=== PATIENT | female | born 1955 | race Caucasian/White ===

== ENCOUNTER 2017-12-16 23:24 | Inpatient (IN) | payer MEDICARE, OTHER ==
[2017-12-17] MEDS ORDERED: ACETAMINOPHEN IV (For NPO) 1,000 MG in EMPTY BAG 1 BAG IVPB STA (00:21)
[2017-12-17] MEDS ORDERED: IBUPROFEN 600 MG TAB PO STA (00:21)
--- NOTE | 2017-12-17 00:27 | ED ---
General Adult HPI - General Chief complaint: Syncope Stated complaint: flu symptoms Time Seen by Provider: 12/16/17 23:40 Source: patient, EMS, RN notes reviewed Mode of arrival: EMS - History of Present Illness Initial comments: This is a 62-year-old female comes in complaining that she started feeling weak earlier today and a couple times she collapsed to the floor. states she was never completely unconscious but was extremely weak and was staring off into space. Patient states she did have chills and felt warm and she has been having an increased cough lately. Patient denies shortness of breath. Patient denies chest pain or palpitations. Patient denies any dysuria hematuria urinary frequency. Patient denies abdominal pain patient denies nausea vomiting diarrhea. Patient denies any rashes. Patient denies being lightheaded or dizzy currently though she states earlier she was. Patient denies any significant injury from when she collapsed. - Related Data Home Medications Medication Instructions Recorded Confirmed Levothyroxine Sodium [Synthroid] 100 mcg PO DAILY 12/17/17 12/17/17 Rivaroxaban [Xarelto] 20 mg PO DAILY 12/17/17 12/17/17 Allergies Allergy/AdvReac Type Severity Reaction Status Date / Time codeine AdvReac Mild Nausea & Verified 12/17/17 00:11 Vomiting & Diarrhea Review of Systems ROS Statement: Those systems with pertinent positive or pertinent negative responses have been documented in the HPI. ROS Other: All systems not noted in ROS Statement are negative. Past Medical History Past Medical History: Cancer, Deep Vein Thrombosis (DVT), Pulmonary Embolus (PE) , Syncope, Thyroid Disorder Additional Past Medical History / Comment(s): Breast CA. History of Any Multi-Drug Resistant Organisms: None Reported Additional Past Surgical History / Comment(s): Right Ankle Surgery Past Psychological History: No Psychological Hx Reported Smoking Status: Never smoker Past Alcohol Use History: None Reported Past Drug Use History: None Reported General Exam - General Exam Comments Initial Comments: GENERAL: Patient is well-developed and well-nourished. Patient is nontoxic and well- hydrated and is in mild distress. ENT: Neck is soft and supple. No significant lymphadenopathy is noted. Oropharynx is clear. Moist mucous membranes. Neck has full range of motion without eliciting any pain. EYES: The sclera were anicteric and conjunctiva were pink and moist. Extraocular movements were intact and pupils were equal round and reactive to light. Eyelids were unremarkable. PULMONARY: Patient has crackles in the right base CARDIOVASCULAR: There is a regular rate and rhythm without any murmurs gallops or rubs. ABDOMEN: Soft and nontender with normal bowel sounds. No palpable organomegaly was noted. There is no palpable pulsatile mass. SKIN: Skin is clear with no lesions or rashes and otherwise unremarkable. NEUROLOGIC: Patient is alert and oriented x3. Cranial nerves II through XII are grossly intact. Motor and sensory are also intact. Normal speech, volume and content. Symmetrical smile. MUSCULOSKELETAL: Normal extremities with adequate strength and full range of motion. No lower extremity swelling or edema. No calf tenderness. LYMPHATICS: No significant lymphadenopathy is noted PSYCHIATRIC: Normal psychiatric evaluation. Normal interpersonal interactions appears functionally intact in deals appropriately with others. No signs of depression. No signs of anxiety. Course Vital Signs 12/16/17 12/17/17 23:29 01:56 Temperature 102.3 F H 100.7 F H Pulse Rate 74 85 Respiratory 20 18 Rate Blood Pressure 128/66 98/54 O2 Sat by Pulse 96 95 Oximetry Medical Decision Making - Medical Decision Making Patient's EKG shows normal sinus rhythm at 60 bpm OH interval is 134 QRS is 86 Q -T intervals 38 QTC is 412. Patient's EKG shows no ST segment elevation or depression or T wave abnormalities are noted. Chest x-ray shows bilateral pneumonia. Since the patient just got off the Zithromax recently I started the patient on some Levaquin and Tamiflu. I spoke with Dr. Sheets he agreed to admit the patient admitted the patient wrote admitting orders. - Lab Data Result diagrams: 12/17/17 00:23 12/17/17 00:00 Lab Results 12/17/17 12/17/17 12/17/17 Range/Units 00:00 00:00 00:00 WBC (3.8-10.6) k/uL RBC (3.80-5.40) m/uL Hgb (11.4-16.0) gm/dL Hct (34.0-46.0) % MCV (80.0-100.0) fL MCH (25.0-35.0) pg MCHC (31.0-37.0) g/dL RDW (11.5-15.5) % Plt Count (150-450) k/uL Neutrophils % % Lymphocytes % % Monocytes % % Eosinophils % % Basophils % % Neutrophils # (1.3-7.7) k/uL Lymphocytes # (1.0-4.8) k/uL Monocytes # (0-1.0) k/uL Eosinophils # (0-0.7) k/uL Basophils # (0-0.2) k/uL PT (9.0-12.0) sec INR (<1.2) APTT (22.0-30.0) sec Sodium 137 (137-145) mmol/L Potassium 3.9 (3.5-5.1) mmol/L Chloride 97 L (98-107) mmol/L Carbon Dioxide 27 (22-30) mmol/L Anion Gap 13 mmol/L BUN 18 H (7-17) mg/dL Creatinine 1.20 H (0.52-1.04) mg/dL Est GFR (CKD-EPI)AfAm 57 (>60 ml/min/1.73 sqM) Est GFR (CKD-EPI)NonAf 49 (>60 ml/min/1.73 sqM) Glucose 110 H (74-99) mg/dL Plasma Lactic Acid Gallito 1.2 (0.7-2.0) mmol/L Calcium 8.8 (8.4-10.2) mg/dL Total Bilirubin 1.7 H (0.2-1.3) mg/dL AST 73 H (14-36) U/L ALT 56 H (9-52) U/L Alkaline Phosphatase 95 (38-126) U/L Troponin I (0.000-0.034) ng/mL Total Protein 6.6 (6.3-8.2) g/dL Albumin 3.8 (3.5-5.0) g/dL Influenza Type A RNA Detected H (Not Detectd) Influenza Type B (PCR) Not Detected (Not Detectd) 12/17/17 12/17/17 12/17/17 Range/Units 00:00 00:00 00:23 WBC 2.7 L (3.8-10.6) k/uL RBC 4.81 (3.80-5.40) m/uL Hgb 13.6 (11.4-16.0) gm/dL Hct 39.7 (34.0-46.0) % MCV 82.6 (80.0-100.0) fL MCH 28.3 (25.0-35.0) pg MCHC 34.3 (31.0-37.0) g/dL RDW 12.6 (11.5-15.5) % Plt Count 133 L (150-450) k/uL Neutrophils % 71 % Lymphocytes % 23 % Monocytes % 4 % Eosinophils % 0 % Basophils % 0 % Neutrophils # 1.9 (1.3-7.7) k/uL Lymphocytes # 0.6 L (1.0-4.8) k/uL Monocytes # 0.1 (0-1.0) k/uL Eosinophils # 0.0 (0-0.7) k/uL Basophils # 0.0 (0-0.2) k/uL PT 10.8 (9.0-12.0) sec INR 1.1 (<1.2) APTT 28.8 (22.0-30.0) sec Sodium (137-145) mmol/L Potassium (3.5-5.1) mmol/L Chloride (98-107) mmol/L Carbon Dioxide (22-30) mmol/L Anion Gap mmol/L BUN (7-17) mg/dL Creatinine (0.52-1.04) mg/dL Est GFR (CKD-EPI)AfAm (>60 ml/min/1.73 sqM) Est GFR (CKD-EPI)NonAf (>60 ml/min/1.73 sqM) Glucose (74-99) mg/dL Plasma Lactic Acid Gallito (0.7-2.0) mmol/L Calcium (8.4-10.2) mg/dL Total Bilirubin (0.2-1.3) mg/dL AST (14-36) U/L ALT (9-52) U/L Alkaline Phosphatase (38-126) U/L Troponin I <0.012 (0.000-0.034) ng/mL Total Protein (6.3-8.2) g/dL Albumin (3.5-5.0) g/dL Influenza Type A RNA (Not Detectd) Influenza Type B (PCR) (Not Detectd) Disposition Clinical Impression: Near syncope, Bilateral pneumonia, Influenza Disposition: ADMITTED IP TO THIS [facility] Is patient prescribed a controlled substance at discharge?: No Time of Disposition: 01:25
[2017-12-17 00:34] LABS: Basophils % (A) 0 %; Eosinophils % (A) 0 %; HCT 39.7 % (34.0-46.0); HGB 13.6 gm/dL (11.4-16.0); Lymphocytes # (A) 0.6 k/uL (1.0-4.8); Lymphocytes % (A) 23 %; MCH 28.3 pg (25.0-35.0); MCHC 34.3 g/dL (31.0-37.0); MCV 82.6 fL (80.0-100.0); Mean Platelet Volume 7.1; Monocytes # (A) 0.1 k/uL (0-1.0); Monocytes % (A) 4 %; Neutrophils # (A) 1.9 k/uL (1.3-7.7); Neutrophils % (A) 71 %; Platelet Count 133 k/uL (150-450); RBC 4.81 m/uL (3.80-5.40); RDW 12.6 % (11.5-15.5); WBC 2.7 k/uL (3.8-10.6)
[2017-12-17] MEDS: SODIUM CHLORIDE 0.9% 500 ML IV SCH ×2 (00:38→00:39)
[2017-12-17 00:45] LABS: INR 1.1 (<1.2); Partial Thromboplastin Time 28.8 sec (22.0-30.0); Prothrombin Time 10.8 sec (9.0-12.0)
[2017-12-17] MEDS ORDERED: OSELTAMIVIR 75 MG CAP PO STA (00:55)
--- NOTE | 2017-12-17 00:59 | XR ---
EXAMINATION TYPE: XR chest 2V DATE OF EXAM: 12/17/2017 COMPARISON: NONE HISTORY: Fever TECHNIQUE: Frontal and lateral views of the chest are obtained. FINDINGS: There is some patchy infiltrate in both lower lobes and more on the right side. There is n o gross heart failure. I see no pleural effusion. Mediastinum is normal. There are chest leads. Bony thorax is intact. IMPRESSION: Bilateral lower lobe pneumonia. No gross heart failure.
[2017-12-17] MEDS ORDERED: cefTRIAXone 2,000 MG in SODIUM CHLORIDE 0.9% 100 ML IVPB STA (01:03)
[2017-12-17 01:04] LABS: Albumin 3.8 g/dL (3.5-5.0); Calcium 8.8 mg/dL (8.4-10.2); Potassium 3.9 mmol/L (3.5-5.1); Total Bilirubin 1.7 mg/dL (0.2-1.3); Total Protein 6.6 g/dL (6.3-8.2)
[2017-12-17] MEDS ORDERED: cefTRIAXone IN SWFI 2,000 MG/20 ML SYRINGE IVP ONE (01:15)
[2017-12-17] MEDS ORDERED: LEVOFLOXACIN 750MG-D5W PMX 750 MG in DEXTROSE/WATER 1 150ML.BAG IVPB STA (01:24)
[2017-12-17] MEDS ORDERED: PNEUMONIA PROTOCOL UTILIZED 1 EACH MISC PO PRN (01:25)
[2017-12-17] MEDS ORDERED: IPRATROPIUM-ALBUTEROL 3 ML NEB INHALATION PRN (01:43)
[2017-12-17] MEDS ORDERED: SODIUM CHLORIDE 0.9% 1,000 ML IV ONE (01:45)
[2017-12-17] MEDS: SODIUM CHLORIDE 0.9% 1,000 ML IV SCH ×3 (02:12→22:34)
[2017-12-17 03:25] VITALS: BMI 32.3
[2017-12-17] MEDS: IPRATROPIUM-ALBUTEROL 3 ML NEB INHALATION SCH ×5 (03:52→21:24)
[2017-12-17 05:47] LABS: Appearance,Urine Clear (Clear); Bilirubin,Urine Negative (Negative); Blood,Urine Negative (Negative); Color,Urine Yellow; Glucose,Urine (UA) Negative (Negative); Ketones,Urine Negative (Negative); Leukocyte Esterase,Urine Large (Negative); Mucus,Urine Few /hpf; Nitrite,Urine Negative (Negative); Protein,Urine 1+ (Negative); RBC,Urine 1 /hpf (0-5); Specific Gravity,Urine 1.012 (1.001-1.035); Squamous Epithelial Cell,Urine 1 /hpf (0-4); Urobilinogen,Urine <2.0 mg/dL (<2.0); WBC,Urine 16 /hpf (0-5)
[2017-12-17] MEDS: LEVOTHYROXINE 100 MCG TAB PO SCH (06:00)
[2017-12-17 06:38] LABS: Basophils % (A) 0 %; Eosinophils % (A) 1 %; HCT 36.9 % (34.0-46.0); HGB 12.3 gm/dL (11.4-16.0); Lymphocytes # (A) 0.8 k/uL (1.0-4.8); Lymphocytes % (A) 35 %; MCH 28.3 pg (25.0-35.0); MCHC 33.3 g/dL (31.0-37.0); Mean Platelet Volume 7.3; Monocytes # (A) 0.1 k/uL (0-1.0); Monocytes % (A) 3 %; Neutrophils # (A) 1.3 k/uL (1.3-7.7); Neutrophils % (A) 59 %; RBC 4.34 m/uL (3.80-5.40); RDW 12.7 % (11.5-15.5); WBC 2.2 k/uL (3.8-10.6)
[2017-12-17 06:49] LABS: ALT 53 U/L (9-52); AST 49 U/L (14-36); Albumin 2.8 g/dL (3.5-5.0); Alkaline Phosphatase 71 U/L (38-126); Anion Gap 12 mmol/L; Blood Urea Nitrogen 16 mg/dL (7-17); Calcium 7.8 mg/dL (8.4-10.2); Carbon Dioxide 20 mmol/L (22-30); Chloride 106 mmol/L (98-107); Glucose 102 mg/dL (74-99); Potassium 3.8 mmol/L (3.5-5.1); Sodium 138 mmol/L (137-145); Total Bilirubin 1.4 mg/dL (0.2-1.3); Total Protein 5.4 g/dL (6.3-8.2)
[2017-12-17 07:31] LABS: Platelet Count 97 k/uL (150-450)
[2017-12-17] MEDS: RIVAROXABAN 20 MG TAB PO SCH (08:31)
[2017-12-17] MEDS: OSELTAMIVIR 75 MG CAP PO SCH ×2 (08:31→20:20)
--- NOTE | 2017-12-17 09:41 | P.HPIM ---
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 Apparently the patient has had a nonproductive cough for the last 6 days and initially saw her PCP who started her on azithromycin and steroids, the patient had no improvement of her symptoms and started running fevers and chills about 2 days ago, she reports loss of appetite she denied any nausea vomiting or shortness of breath or chest pain, she also denied any lightheadedness or dizziness. She denies any significant injuries from when she collapsed. The patient denies any recent flu shots and denies any sick contacts or recent travel. In the ER she was noted to be febrile T-max of 102.3, with positive flu A and chest x-ray suggestive of bilateral lower lobe pneumonia. She was given a liter of fluids and started on Tamiflu and Levaquin. The patient was noted to be possibly be in acute kidney injury with a serum creatinine of 1.2 and elevated total bilirubin of 1.7 with mild transaminitis ast/alt 73/56 respectively and recommended for admission Review of Systems All other 14 point review systems negative except per HPI Past Medical History Past Medical History: Cancer, Deep Vein Thrombosis (DVT), Pulmonary Embolus (PE) , Syncope, Thyroid Disorder Additional Past Medical History / Comment(s): Breast CA. History of Any Multi-Drug Resistant Organisms: None Reported Additional Past Surgical History / Comment(s): Right Ankle Surgery Past Psychological History: No Psychological Hx Reported Smoking Status: Never smoker Past Alcohol Use History: None Reported Past Drug Use History: None Reported Medications and Allergies Home Medications Medication Instructions Recorded Confirmed Type Levothyroxine Sodium [Synthroid] 100 mcg PO DAILY 12/17/17 12/17/17 History Rivaroxaban [Xarelto] 20 mg PO DAILY 12/17/17 12/17/17 History Allergies Allergy/AdvReac Type Severity Reaction Status Date / Time codeine AdvReac Mild Nausea & Verified 12/17/17 08:22 Vomiting & Diarrhea Physical Exam Vitals: Vital Signs Temp Pulse Pulse Pulse Resp BP BP 12/17/17 09:18 88 12/17/17 09:06 84 12/17/17 08:00 97.7 F 58 L 76 16 96/56 12/17/17 03:30 67 18 12/17/17 03:12 97.8 F 67 18 12/17/17 01:56 100.7 F H 85 18 98/54 12/16/17 23:29 102.3 F H 74 20 128/66 BP BP Pulse Ox 12/17/17 09:18 12/17/17 09:06 96 12/17/17 08:00 113/67 113/67 96 12/17/17 03:30 12/17/17 03:12 106/50 96 12/17/17 01:56 95 12/16/17 23:29 96 Intake and Output 12/16/17 12/17/17 12/17/17 22:59 06:59 14:59 Intake Total 300 100 Balance 300 100 Intake: Intake, IV Titration 300 Amount Sodium Chloride 0.9% 1, 300 000 ml @ 125 mls/hr IV . Q8H [facility] Rx#:[id number] Oral 100 Other: Voiding Method Bedside Commode Weight 92.8 kg Constitutional: No acute distress, conversant, pleasant Eyes: Anicteric sclerae, moist conjunctiva, no lid-lag, PERRLA, sunken orbit ENMT: NC/AT,Oropharynx clear, no erythema, exudates Neck:Supple, FROM, no masses, or JVD, No carotid bruits; No thyromegaly Lungs: Bibasilar rhonchi, lungs diminished, Normal respiratory effort, no accessory muscle use Cardiovascular: Heart regular in rate and rhythm, No murmurs, gallops, or rubs no peripheral edema Abdominal: Soft Nontender, nom distended, no guarding, no rebound or rigidity, Normoactive bowel sounds No hepatomegaly, No splenomegaly, No palpable mass No abdominal wall hernia noted Skin: Increased skin tenting No induration No subcutaneous nodules, No rash, lesions, No ulcers Extremities:No digital cyanosis No clubbing, Pedal pulses intact and symmetrical Radial pulses intact and symmetrical Normal gait and station, No calf tenderness, brisk capillary refill Psychiatric: Alert and oriented to person, place and time, Appropriate affect Intact judgement Neuro: Muscles Strength 5/5 in all 4 extremities, Sensation to light touch grossly present throughout, Cranial nerves II-XII grossly intact. No focal sensory deficits Results CBC & Chem 7: 12/17/17 06:11 12/17/17 06:11 Labs: Abnormal Lab Results - Last 24 Hours (Table) 12/17/17 12/17/17 12/17/17 Range/Units 00:00 00:00 00:23 WBC 2.7 L (3.8-10.6) k/uL Plt Count 133 L (150-450) k/uL Lymphocytes # 0.6 L (1.0-4.8) k/uL Chloride 97 L (98-107) mmol/L Carbon Dioxide (22-30) mmol/L BUN 18 H (7-17) mg/dL Creatinine 1.20 H (0.52-1.04) mg/dL Glucose 110 H (74-99) mg/dL Calcium (8.4-10.2) mg/dL Total Bilirubin 1.7 H (0.2-1.3) mg/dL AST 73 H (14-36) U/L ALT 56 H (9-52) U/L Total Protein (6.3-8.2) g/dL Albumin (3.5-5.0) g/dL Urine Protein (Negative) Ur Leukocyte Esterase (Negative) Urine WBC (0-5) /hpf Urine Mucus (None) /hpf Influenza Type A RNA Detected H (Not Detectd) 12/17/17 12/17/17 12/17/17 Range/Units 04:15 06:11 06:11 WBC 2.2 L (3.8-10.6) k/uL Plt Count 97 L (150-450) k/uL Lymphocytes # 0.8 L (1.0-4.8) k/uL Chloride (98-107) mmol/L Carbon Dioxide 20 L (22-30) mmol/L BUN (7-17) mg/dL Creatinine (0.52-1.04) mg/dL Glucose 102 H (74-99) mg/dL Calcium 7.8 L (8.4-10.2) mg/dL Total Bilirubin 1.4 H (0.2-1.3) mg/dL AST 49 H (14-36) U/L ALT 53 H (9-52) U/L Total Protein 5.4 L (6.3-8.2) g/dL Albumin 2.8 L (3.5-5.0) g/dL Urine Protein 1+ H (Negative) Ur Leukocyte Esterase Large H (Negative) Urine WBC 16 H (0-5) /hpf Urine Mucus Few H (None) /hpf Influenza Type A RNA (Not Detectd) Thrombosis Risk Factor Assmnt - Choose All That Apply Any of the Below Risk Factors Present?: Yes Each Factor Represents 1 point: Age 41-60 years Other Risk Factors: No Other congenital or acquired thrombophilia - If yes, enter type in comment: No Thrombosis Risk Factor Assessment Total Risk Factor Score: 1 Thrombosis Risk Factor Assessment Level: Low Risk Assessment and Plan Assessment: Chronic medical conditions Thromboembolic disease on anticoagulation Hypothyroidism CODE STATUS Full code (1) Sepsis Current Visit: Yes Status: Acute Code(s): A41.9 - SEPSIS, UNSPECIFIED ORGANISM SNOMED Code(s): 63388314 (2) Bilateral pneumonia Current Visit: Yes Status: Acute Code(s): J18.9 - PNEUMONIA, UNSPECIFIED ORGANISM SNOMED Code(s): 738418080 (3) Acute kidney injury Current Visit: Yes Status: Acute Code(s): N17.9 - ACUTE KIDNEY FAILURE, UNSPECIFIED SNOMED Code(s): 66184863 (4) Influenza Current Visit: Yes Status: Acute Code(s): J11.1 - FLU DUE TO UNIDENTIFIED INFLUENZA VIRUS W OTH RESP MANIFEST SNOMED Code(s): 1175016 (5) Near syncope Current Visit: Yes Status: Acute Code(s): R55 - SYNCOPE AND COLLAPSE SNOMED Code(s): 200503816 Plan: Plan the patient is admitted with sepsis anticipated greater than 2 midnight stay secondary to bilateral pneumonia possibly community-acquired versus viral pneumonia, and she started empirically on IV antibiotics with Levaquin and antivirals Tamiflu. We'll start scheduled and when necessary bronchodilator DuoNeb breathing treatments along with incentive spirometry. I'll place her on respiratory precautions. Patient does have acute kidney injury likely prerenal secondary to dehydration, likely cause of her feeling fatigued and weak. Checked orthostatics was likely positive as a patient had already received at least 2 L bolus, Patient has a mild transaminitis secondary to acute viral illness with the flu. We'll repeat bolus and increase her maintenance fluids. We'll resume the patient's Xarelto and Synthroid. Continue to follow her clinical course
[2017-12-17] MEDS: guaiFENesin 600 MG TABLET.ER PO SCH ×2 (13:04→20:20)
[2017-12-17] MEDS ORDERED: LEVOFLOXACIN 750MG-D5W PMX 750 MG in DEXTROSE/WATER 1 150ML.BAG IVPB SCH (23:00)
[2017-12-18] MEDS ORDERED: IPRATROPIUM-ALBUTEROL 3 ML NEB ONE (04:00)
[2017-12-18] MEDS: IPRATROPIUM-ALBUTEROL 3 ML NEB INHALATION SCH ×4 (05:39→12:11)
[2017-12-18] MEDS: LEVOTHYROXINE 100 MCG TAB PO SCH (06:46)
[2017-12-18] MEDS: RIVAROXABAN 20 MG TAB PO SCH (07:54)
[2017-12-18] MEDS: guaiFENesin 600 MG TABLET.ER PO SCH ×2 (07:54→20:23)
[2017-12-18] MEDS: OSELTAMIVIR 75 MG CAP PO SCH ×2 (07:54→20:23)
--- NOTE | 2017-12-18 10:27 | XR ---
EXAMINATION TYPE: XR chest 2V DATE OF EXAM: 12/18/2017 COMPARISON: 12/17/2017 INDICATION: Pneumonia TECHNIQUE: Frontal and lateral views of the chest are obtained. FINDINGS: The heart size is normal. The pulmonary vasculature is normal. There is a right middle lobe infiltrate. Correlate for pneumonia. Findings are worsening from prior s tudy. Some posterior infiltrate may be present as well.. IMPRESSION: 1. Worsening right middle and lower lobe infiltrates. Correlate for pneumonia.
[2017-12-18] MEDS ORDERED: SODIUM CHLORIDE 0.65% NASAL SPRAY 44 ML BTL NASAL PRN (14:12)
--- NOTE | 2017-12-18 14:31 | P.PN ---
Subjective Progress Note Date: 12/18/17 62-year-old female with a known history of breast cancer in remission, recurrent DVT and PE on rivaraxaban, who was admitted with sepsis secondary to influenza A and bilateral pneumonia. Also found to have acute kidney injury with a creatinine of 1.2, mild transaminitis with an AST of 73, ALP 56. Patient seen and examined resting comfortably sitting on the bedside commode using as a chair, bedside. is concern as the patient had no imaging of her sinuses, reports patient had near syncopal events at home where she hit her face against the ground with resulting nosebleed. There is noted soft tissue swelling around her nose. Objective - Vital Signs Vital signs: Vital Signs Temp 96.6 F L 12/18/17 11:16 Pulse 69 12/18/17 11:18 Resp 20 12/18/17 11:18 BP 123/58 12/18/17 11:16 Pulse Ox 98 12/18/17 11:16 Intake & Output 12/17/17 12/18/17 12/18/17 18:59 06:59 18:59 Intake Total 340 1400 420 Output Total 1 1200 Balance 339 1400 -780 Weight 92 kg Intake: IV 1250 Sodium Chloride 0.9% 1, 1250 000 ml @ 125 mls/hr IV . Q8H [facility] Rx#:[id number] Intake, IV Titration 150 Amount Levofloxacin 750Mg-D5w 150 Pmx 750 mg In Dextrose/ Water 1 150ml.bag @ 100 mls/hr IVPB HS [facility] Rx#: [id number] Oral 340 420 Output: Urine 1 1200 Other: Voiding Method Bedside Commode Bedside Commode Bedside Commode # Voids 1 3 # Bowel Movements 1 - Exam General: A/O x 3, NAD, Lying in bed comfortably HEENT: EOMI, MMM, soft tissue swelling around the bridge of nose with tenderness to palpation Neck: Supple. No JVD, trachea midline CVS: Regular rate and rhythm. + S1/S2, no murmurs/gallops/rubs Respiratory: Bilateral air entry noted. Right-sided crackles, no wheeze Abdomen: Soft, nontender, nondistended. Bowel sounds audible Extremities: No lower extremity edema. No clubbing or cyanosis Skin: No rash or skin change noted Psych: Without hallucinations, abnormal affect, or abnormal behaviors during the examination - Labs CBC & Chem 7: 12/17/17 06:11 12/17/17 06:11 Labs: Microbiology - Last 24 Hours (Table) 12/17/17 04:15 Urine Culture - Final Urine,Voided 12/17/17 00:00 Blood Culture - Preliminary Blood No Growth after 24 hours Assessment and Plan (1) Acute kidney injury Current Visit: Yes Status: Acute Code(s): N17.9 - ACUTE KIDNEY FAILURE, UNSPECIFIED SNOMED Code(s): 75758349 (2) Bilateral pneumonia Current Visit: Yes Status: Acute Code(s): J18.9 - PNEUMONIA, UNSPECIFIED ORGANISM SNOMED Code(s): 674764107 (3) Influenza Current Visit: Yes Status: Acute Code(s): J11.1 - FLU DUE TO UNIDENTIFIED INFLUENZA VIRUS W OTH RESP MANIFEST SNOMED Code(s): 9172465 (4) Near syncope Current Visit: Yes Status: Acute Code(s): R55 - SYNCOPE AND COLLAPSE SNOMED Code(s): 751571588 (5) Sepsis Current Visit: Yes Status: Acute Code(s): A41.9 - SEPSIS, UNSPECIFIED ORGANISM SNOMED Code(s): 06491653 Plan: Noted soft tissue swelling around her nose with tender to palpation. [place] nasal spray when necessary, will get a CT of facial bones to make sure his notable fracture. Patient's is more worried about a bleed since she is on a blood thinner however sign of ongoing bleed. Sepsis is improving. Now afebrile, not tachycardic, though remains mildly leukopenic. Continue levofloxacin for the pneumonia, continue Tamiflu for the influenza. Change breathing treatments to as needed as patient is not actively wheezing, patient states that the breathing treatments make her jittery. Encourage by mouth intake.
--- NOTE | 2017-12-18 16:39 | CT ---
EXAMINATION TYPE: CT facial bones wo con DATE OF EXAM: 12/18/2017 COMPARISON: NONE HISTORY: [id number] female facial swelling following fall, hitting nose TECHNIQUE: Contiguous axial scanning of the facial bones without IV contrast. Coronal reconstructions performed. CT DLP: 699.4 mGycm Automated exposure control for dose reduction was used. FINDINGS: The mandible and TMJs are intact. Pterygoid plates and zygomatic arches are intact. Orbits and globes are intact. No facial bone fracture seen. Mild mucosal thickening along the floor of the right maxillary sinus and throughout the ethmoid air c ells. There is minimal focal angulation along the right nasal bone but without any associated fracture luce ncy identified here. Reference axial image 52. No depressed nasal bone fracture. Mastoid air cells well pneumatized. Otherwise intracranial structures show no gross abnormality. IMPRESSION: 1. SUBTLE FOCAL ANGULATION OF THE RIGHT NASAL BONE SUSPECTED OLD POSTTRAUMATIC SEQUELA RATHER THAN A NONDISPLACED ACUTE FRACTURE. NO DEPRESSED NASAL BONE FRACTURE OR OTHERWISE ANY OTHER ACUTE FACIAL BON E FRACTURE SEEN. 2. MILD CHRONIC ETHMOID AND RIGHT MAXILLARY SINUS DISEASE.
[2017-12-18] MEDS: SODIUM CHLORIDE 0.9% 1,000 ML IV SCH ×3 (16:51→23:07)
[2017-12-18] MEDS ORDERED: LEVOFLOXACIN 750 MG TAB PO SCH (21:00)
[2017-12-19] MEDS: LEVOTHYROXINE 100 MCG TAB PO SCH (06:10)
[2017-12-19] MEDS: SODIUM CHLORIDE 0.9% 1,000 ML IV SCH (07:47)
[2017-12-19] MEDS: RIVAROXABAN 20 MG TAB PO SCH (07:48)
[2017-12-19] MEDS: OSELTAMIVIR 75 MG CAP PO SCH (07:48)
[2017-12-19] MEDS: guaiFENesin 600 MG TABLET.ER PO SCH (07:48)
[2017-12-19 07:54] VITALS: BP 120/68; PULSE 60; RESP 16; TEMP 96.7
--- NOTE | 2017-12-19 11:45 | P.DS ---
Providers Date of admission: 12/17/17 01:26 Expected date of discharge: 12/19/17 Attending physician: Robert Turner MD Primary care physician: Physician Nonstaff - Discharge Diagnosis(es) (1) Bilateral pneumonia levaquin fpr 7 more days Current Visit: Yes Status: Acute (2) Influenza tamiflu for 3 more days Current Visit: Yes Status: Acute (3) Pulmonary embolism on xarelto Current Visit: Yes Status: Acute (4) Acute kidney injury Resolved Current Visit: Yes Status: Acute Hospital Course: 62 year old female that comes in symptoms of cough shortness of breath. She was found to have bilateral pneumonia. Screen also showed she had Tamiflu. Patient was treated with Levaquin and Tamiflu. She is feeling better. Home O2 evaluation was also performed. She will be discharged home on 7 days of Levaquin and 3 more days of Tamiflu. Patient Condition at Discharge: Stable Plan - Discharge Summary Discharge Rx Participant: No New Discharge Prescriptions: New Levofloxacin [Levaquin] 750 mg PO Q24H #7 tab Oseltamivir [Tamiflu] 75 mg PO Q12HR #6 cap Sodium Chloride 0.65% Nasal [Deep Sea (Saline)] 2 spray NASAL QID PRN spray PRN Reason: Congestion Continue Levothyroxine Sodium [Synthroid] 100 mcg PO DAILY Rivaroxaban [Xarelto] 20 mg PO DAILY Discharge Medication List Levothyroxine Sodium [Synthroid] 100 mcg PO DAILY 12/17/17 [History] Rivaroxaban [Xarelto] 20 mg PO DAILY 12/17/17 [History] Levofloxacin [Levaquin] 750 mg PO Q24H #7 tab 12/19/17 [Rx] Oseltamivir [Tamiflu] 75 mg PO Q12HR #6 cap 12/19/17 [Rx] Sodium Chloride 0.65% Nasal [Deep Sea (Saline)] 2 spray NASAL QID PRN spray [Rx] Follow up Appointment(s)/Referral(s): Nonstaff,Physician [Primary Care Provider] - 1-2 days
== END 2017-12-19 13:45 | disposition home or self-care (01) | DRG 871 ==
LOC: EC 23:24 → 6SEL 12-17 01:26
PROVIDERS: ADMIT Family Medicine; ATTEND Family Medicine
DX: A41.89 Other specified sepsis (principal); J10.08 Influenza due to other identified influenza virus with other specified pneumonia; J12.89 Other viral pneumonia; N17.9 Acute kidney failure, unspecified; E86.0 Dehydration; E03.9 Hypothyroidism, unspecified; Z79.01 Long term (current) use of anticoagulants; Z85.3 Personal history of malignant neoplasm of breast; Z86.711 Personal history of pulmonary embolism; Z86.718 Personal history of other venous thrombosis and embolism; Z79.890 Hormone replacement therapy; Z88.5 Allergy status to narcotic agent
CPT/HCPCS: 36415; 70486; 71046; 80053; 81001; 83605; 84484; 85025; 85610; 85730; 87040; 87086; 87502; 93005; 94640; 94760; 96365; 96375; 99285

== ENCOUNTER 2019-06-16 10:02 | Emergency (ER) | payer MEDICARE, OTHER ==
[2019-06-16] MEDS ORDERED: SODIUM CHLORIDE 0.9% 500 ML 500 ML IV STA (10:44)
--- NOTE | 2019-06-16 10:47 | ED ---
Arrhythmia/Palpitations HPI - General Source: patient, RN notes reviewed Mode of arrival: ambulatory Limitations: no limitations <Nirav Burr - Last Filed: 06/16/19 12:14> <Pari Ramirez - Last Filed: 06/20/19 23:37> - General Chief Complaint: Arrhythmia/Palpitations Stated Complaint: racing heart Time Seen by Provider: 06/16/19 10:13 - History of Present Illness Initial Comments: 64-year-old female presents emergency Department chief complaint of heart racing. Patient states that she was doing her daily walking in which she states that she started feeling her heart racing. Patient states that she was not doing anything out of the usual. Patient states that she attempted to down, rest with no improvement of symptoms. At this point she proceeded to the emergency department and which she states symptoms have resolved. Patient had no associated chest pain, shortness breath, dizziness, focal weakness. She has no point of nausea vomiting diarrhea constipation no recent URI symptoms. Patient has no history of A. fib, irregular rhythms or SVT. Patient states she is on Xarelto for last 5-6 years secondary to bilateral long and leg clots. Patient has a history of breast cancer and hypothyroidism. Patient offers no other associated symptoms. (Nirav Burr) - Related Data Home Medications Medication Instructions Recorded Confirmed Levothyroxine Sodium [Synthroid] 100 mcg PO DAILY 12/17/17 06/16/19 Rivaroxaban [Xarelto] 20 mg PO DAILY 12/17/17 06/16/19 Allergies Allergy/AdvReac Type Severity Reaction Status Date / Time codeine AdvReac Mild Nausea & Verified 06/16/19 10:48 Vomiting & Diarrhea albuterol [From Ventolin HFA] AdvReac SHAKING,NER Verified 06/16/19 10:48 VES Review of Systems ROS Other: All systems not noted in ROS Statement are negative. <Nirav Burr - Last Filed: 06/16/19 12:14> ROS Other: All systems not noted in ROS Statement are negative. <Pari Ramirez - Last Filed: 06/20/19 23:37> ROS Statement: Those systems with pertinent positive or pertinent negative responses have been documented in the HPI. Past Medical History Past Medical History: Cancer, Deep Vein Thrombosis (DVT), Pulmonary Embolus (PE), Syncope, Thyroid Disorder Additional Past Medical History / Comment(s): Breast CA. History of Any Multi-Drug Resistant Organisms: None Reported Additional Past Surgical History / Comment(s): Right Ankle Surgery Past Psychological History: No Psychological Hx Reported Smoking Status: Never smoker Past Alcohol Use History: None Reported Past Drug Use History: None Reported <Nirav Burr Jeny - Last Filed: 06/16/19 12:14> General Exam Limitations: no limitations General appearance: alert, in no apparent distress Head exam: Present: atraumatic, normocephalic, normal inspection Eye exam: Present: normal appearance, PERRL, EOMI. Absent: scleral icterus, conjunctival injection, periorbital swelling ENT exam: Present: normal exam, normal oropharynx, mucous membranes moist Neck exam: Present: normal inspection, full ROM. Absent: tenderness, meningismus, lymphadenopathy Respiratory exam: Present: normal lung sounds bilaterally. Absent: respiratory distress, wheezes, rales, rhonchi, stridor Cardiovascular Exam: Present: normal rhythm, tachycardia, normal heart sounds. Absent: systolic murmur, diastolic murmur, rubs, gallop, clicks GI/Abdominal exam: Present: soft, normal bowel sounds. Absent: distended, tenderness, guarding, rebound, rigid Neurological exam: Present: alert, oriented X3, CN II-XII intact Skin exam: Present: warm, dry, intact, normal color. Absent: rash <Nirav Burr Jeny - Last Filed: 06/16/19 12:14> Course Vital Signs 06/16/19 06/16/19 10:10 12:44 Temperature 98.1 F 97.0 F L Pulse Rate 113 H 70 Respiratory 18 16 Rate Blood Pressure 131/81 121/73 O2 Sat by Pulse 98 97 Oximetry EKG Findings - EKG Comments: EKG Findings:: EKG interpreted by me , performed at 10:22 sinus tachycardia rate of 109 DE 194 QRS 78 QT/QTC 326/439 <Nirav Burr Jeny - Last Filed: 06/16/19 12:14> Medical Decision Making - Lab Data Result diagrams: 06/16/19 10:32 06/16/19 10:32 <Nirav uBrr Jeny - Last Filed: 06/16/19 12:14> - Lab Data Result diagrams: 06/16/19 10:32 06/16/19 10:32 <Pari Ramirez - Last Filed: 06/20/19 23:37> - Medical Decision Making 64-year-old female presents emergency department for palpitations. Patient states that her symptoms resolved prior to arrival she has been asymptomatic in the emergency department EKG showed mild sinus tach but she was recently make a that time. Labs are unremarkable. Patient had no chest pain or shortness breath. Patient advised to follow-up for Holter monitor/event monitor, echocardiogram. Return parameters quickly outlined. (Nirav Burr) I was available for consultation in the emergency department. The history and physical exam were done by the midlevel provider. I was consulted for this patients care. I reviewed the case with the midlevel provider and based on their presentation of the patient, I agree with the assessment, medical decision making and plan of care as documented. Chart was dictated using [employer] dictation software. Attempts were made to correct any dictation errors however some typographical errors may persist. (Pari Ramirez) - Lab Data Lab Results 06/16/19 06/16/19 06/16/19 Range/Units 10:32 10:32 10:32 WBC 4.9 (3.8-10.6) k/uL RBC 4.65 (3.80-5.40) m/uL Hgb 13.3 (11.4-16.0) gm/dL Hct 41.6 (34.0-46.0) % MCV 89.5 (80.0-100.0) fL MCH 28.6 (25.0-35.0) pg MCHC 32.0 (31.0-37.0) g/dL RDW 13.0 (11.5-15.5) % Plt Count 168 (150-450) k/uL Neutrophils % 67 % Lymphocytes % 23 % Monocytes % 5 % Eosinophils % 3 % Basophils % 0 % Neutrophils # 3.3 (1.3-7.7) k/uL Lymphocytes # 1.1 (1.0-4.8) k/uL Monocytes # 0.3 (0-1.0) k/uL Eosinophils # 0.1 (0-0.7) k/uL Basophils # 0.0 (0-0.2) k/uL PT 10.5 (9.0-12.0) sec INR 1.0 (<1.2) APTT 29.9 (22.0-30.0) sec Sodium 141 (137-145) mmol/L Potassium 4.0 (3.5-5.1) mmol/L Chloride 109 H (98-107) mmol/L Carbon Dioxide 22 (22-30) mmol/L Anion Gap 10 mmol/L BUN 19 H (7-17) mg/dL Creatinine 0.89 (0.52-1.04) mg/dL Est GFR (CKD-EPI)AfAm 80 (>60 ml/min/1.73 sqM) Est GFR (CKD-EPI)NonAf 70 (>60 ml/min/1.73 sqM) Glucose 109 H (74-99) mg/dL Calcium 9.8 (8.4-10.2) mg/dL Magnesium 1.9 (1.6-2.3) mg/dL Total Bilirubin 1.0 (0.2-1.3) mg/dL AST 34 (14-36) U/L ALT 29 (9-52) U/L Alkaline Phosphatase 98 (38-126) U/L Troponin I (0.000-0.034) ng/mL Total Protein 7.4 (6.3-8.2) g/dL Albumin 4.1 (3.5-5.0) g/dL 06/16/19 Range/Units 10:32 WBC (3.8-10.6) k/uL RBC (3.80-5.40) m/uL Hgb (11.4-16.0) gm/dL Hct (34.0-46.0) % MCV (80.0-100.0) fL MCH (25.0-35.0) pg MCHC (31.0-37.0) g/dL RDW (11.5-15.5) % Plt Count (150-450) k/uL Neutrophils % % Lymphocytes % % Monocytes % % Eosinophils % % Basophils % % Neutrophils # (1.3-7.7) k/uL Lymphocytes # (1.0-4.8) k/uL Monocytes # (0-1.0) k/uL Eosinophils # (0-0.7) k/uL Basophils # (0-0.2) k/uL PT (9.0-12.0) sec INR (<1.2) APTT (22.0-30.0) sec Sodium (137-145) mmol/L Potassium (3.5-5.1) mmol/L Chloride (98-107) mmol/L Carbon Dioxide (22-30) mmol/L Anion Gap mmol/L BUN (7-17) mg/dL Creatinine (0.52-1.04) mg/dL Est GFR (CKD-EPI)AfAm (>60 ml/min/1.73 sqM) Est GFR (CKD-EPI)NonAf (>60 ml/min/1.73 sqM) Glucose (74-99) mg/dL Calcium (8.4-10.2) mg/dL Magnesium (1.6-2.3) mg/dL Total Bilirubin (0.2-1.3) mg/dL AST (14-36) U/L ALT (9-52) U/L Alkaline Phosphatase (38-126) U/L Troponin I <0.012 (0.000-0.034) ng/mL Total Protein (6.3-8.2) g/dL Albumin (3.5-5.0) g/dL Disposition Is patient prescribed a controlled substance at d/c from ED?: No Time of Disposition: 12:15 <Nirav Burr - Last Filed: 06/16/19 12:14> <Pari Ramirez - Last Filed: 06/20/19 23:37> Clinical Impression: Palpitations Disposition: HOME SELF-CARE Condition: Stable Instructions (If sedation given, give patient instructions): Heart Palpitations (ED) Additional Instructions: Please return to the Emergency Department if symptoms worsen or any other concer ns. Referrals: Nonstaff,Physician [Primary Care Provider] - 1-2 days
[2019-06-16 10:58] LABS: Basophils % (A) 0 %; Eosinophils # (A) 0.1 k/uL (0-0.7); Eosinophils % (A) 3 %; HCT 41.6 % (34.0-46.0); HGB 13.3 gm/dL (11.4-16.0); Lymphocytes # (A) 1.1 k/uL (1.0-4.8); Lymphocytes % (A) 23 %; MCH 28.6 pg (25.0-35.0); MCV 89.5 fL (80.0-100.0); Mean Platelet Volume 6.4; Monocytes # (A) 0.3 k/uL (0-1.0); Monocytes % (A) 5 %; Neutrophils # (A) 3.3 k/uL (1.3-7.7); Neutrophils % (A) 67 %; Platelet Count 168 k/uL (150-450); RBC 4.65 m/uL (3.80-5.40); WBC 4.9 k/uL (3.8-10.6)
[2019-06-16 11:09] LABS: Albumin 4.1 g/dL (3.5-5.0); Calcium 9.8 mg/dL (8.4-10.2); Magnesium 1.9 mg/dL (1.6-2.3); Total Protein 7.4 g/dL (6.3-8.2)
--- NOTE | 2019-06-16 11:14 | XR ---
EXAMINATION TYPE: XR chest 2V DATE OF EXAM: 06/16/2019 COMPARISON: 12/18/2017 TECHNIQUE: PA and lateral views submitted. HISTORY: Dysrhythmia FINDINGS: The lungs are clear and there is no pneumothorax, pleural effusion, or focal pneumonia. Hyperinflat ion. Biapical pleural thickening. Hypertrophic and degenerative change of the spine. No overt failure . Surgical clips in the abdomen. IMPRESSION: 1. No acute process. Correlate for COPD.
[2019-06-16 11:30] LABS: Partial Thromboplastin Time 29.9 sec (22.0-30.0); Prothrombin Time 10.5 sec (9.0-12.0)
[2019-06-16 12:45] VITALS: BP 121/73; PULSE 70; RESP 16; TEMP 97
== END 2019-06-16 12:45 | disposition home or self-care (01) ==
LOC: EC 10:02
DX: R00.2 Palpitations (principal); R00.0 Tachycardia, unspecified; E03.9 Hypothyroidism, unspecified; Z88.5 Allergy status to narcotic agent; Z88.8 Allergy status to other drugs, medicaments and biological substances; Z79.01 Long term (current) use of anticoagulants; Z79.890 Hormone replacement therapy; Z86.711 Personal history of pulmonary embolism; Z86.718 Personal history of other venous thrombosis and embolism; Z85.3 Personal history of malignant neoplasm of breast; Z82.49 Family history of ischemic heart disease and other diseases of the circulatory system
CPT/HCPCS: 36415; 71046; 80053; 83735; 84484; 85025; 85610; 85730; 93005; 99285